=== PATIENT | male | born 1960 | race Caucasian/White ===

== ENCOUNTER 2017-06-04 17:58 | Emergency (ER) | payer BC ==
[2017-06-04 18:06] VITALS: BP 128/73
[2017-06-04] MEDS ORDERED: Lidocaine 1% MPF* 2 ML VIAL INJ ONE ×2 (18:35→19:15)
[2017-06-04] MEDS ORDERED: Lidocaine 1% MPF* 2 ML VIAL ONE (18:39)
--- NOTE | 2017-06-04 19:27 | UC ---
Laceration HPI - HPI Summary HPI Summary: c/o laceration to right lateral elbow. Pt is UTD with tetanus. - History Of Current Complaint Chief Complaint: UCLaceration Stated Complaint: RIGHT ARM LACERATION Time Seen by Provider: 06/04/17 18:27 Hx Obtained From: Patient Laceration Location: Arm - right elbow alteral side Mechanism Of Injury: Blunt Trauma Onset/Duration: Sudden Onset Severity: Moderate Aggravating Factors: Movement Related History: Dominant Hand Right - Allergies/Home Medications Allergies/Adverse Reactions: Allergies Allergy/AdvReac Type Severity Reaction Status Date / Time No Known Allergies Allergy Verified 06/04/17 18:02 Home Medications: Home Medications Ibuprofen TAB* [Advil TAB*] 400 mg PO Q6H PRN 06/04/17 [History Confirmed ] PMH/Surg Hx/FS Hx/Imm Hx Previously Healthy: Yes - Surgical History Surgical History: Yes Surgery Procedure, Year, and Place: appy, lower back surgery - Family History Known Family History: Positive: Cardiac Disease - Social History Occupation: Employed Full-time Lives: With Family Alcohol Use: None Substance Use Type: None Smoking Status (MU): Former Smoker Type: Cigarettes Amount Used/How Often: 2-3 PPD Length of Time of Smoking/Using Tobacco: ~30 Years Have You Smoked in the Last Year: No When Did the Patient Quit Smoking/Using Tobacco: ~2006 - Immunization History Most Recent Tetanus Shot: ~2014 Review of Systems Constitutional: Negative Skin: Other - laceration to right forearm Eyes: Negative ENT: Negative Respiratory: Negative Cardiovascular: Negative Gastrointestinal: Negative Genitourinary: Negative Motor: Negative Neurovascular: Negative Musculoskeletal: Negative Neurological: Negative Psychological: Negative All Other Systems Reviewed And Are Negative: Yes Physical Exam Triage Information Reviewed: Yes Appearance: Well-Appearing Vital Signs: Initial Vital Signs Temp 97.8 F 06/04/17 18:01 Pulse 70 06/04/17 18:01 Resp 16 06/04/17 18:01 BP 128/73 06/04/17 18:01 Eye Exam: Normal Neck exam: Normal Respiratory Exam: Normal Musculoskeletal Exam: Normal Musculoskeletal: Positive: Strength Intact, ROM Intact Neurological Exam: Normal Psychological Exam: Normal Skin Exam: Other - laceration right proximal lateral elbow Laceration Repair - Laceration Repair 1 Description: Linear Laceration Size After Repair: Length (cm) - 4, Width (mm) - 10, Depth (mm) - 5 Modified For Repair: No Type Injection: Local Anesthesia Used: 1.0% Lido Irrigation With Pressure Irrigation Device: Yes Closure Method: Single Layer - eight 4-0 sutures placed Suture Of: Skin Suture Type: Nylon Laceration Course/Dx - Differential Dx - Laceration/Wound Differental Diagnoses: Laceration Provider Diagnoses: laceration to right forearm repaired with eights sutures placed of 4-0 Discharge - Discharge Plan Condition: Stable Disposition: HOME Prescriptions: Cephalexin CAP* [Keflex 500 CAP*] 500 mg PO Q12H #14 cap Patient Education Materials: Care For Your Stitches (ED), Laceration (ED) Referrals: No Primary Care Phys,NOPCP [Primary Care Provider] - Additional Instructions: Please return in 10-12 days to have the sutures removed. Please monitor for signs and symptoms of infection including but not limited to increased redness, tenderness, purulent discharge, fever and/or chills. If this occurs please seek medical care immediately.
== END 2017-06-04 19:25 | disposition home or self-care (01) ==
LOC: UCCORT 17:58
DX: S51.811A Laceration without foreign body of right forearm, initial encounter (principal); X58.XXXA Exposure to other specified factors, initial encounter; Y93.9 Activity, unspecified; Y92.9 Unspecified place or not applicable; Z87.891 Personal history of nicotine dependence
CPT/HCPCS: 12002; 99212; G0463

== ENCOUNTER 2017-06-15 10:55 | Emergency (ER) | payer BC ==
[2017-06-15 11:10] VITALS: BP 102/65
--- NOTE | 2017-06-15 11:46 | UC ---
HPI Wound/Suture Re-check - HPI Summary HPI Summary: SUTURES PLACED 06/04/17 TO LACERATION ON RIGHT FOREARM AFTER CUTTING ARM WITH BOLT. EIGHT SUTURES PLACED ON 06/04; TWO SUTURES FELL OUT SINCE THAT TIME. JUST FINISHED TEN DAY COURSE OF ANTIBIOTICS, HAS BEEN DRESSING WOUND WITH TRIPLE ANTIBIOTICS. TETANUS UTD. - History Of Current Complaint Chief Complaint: UCSkin Stated Complaint: SUTURE REMOVAL Time Seen by Provider: 06/15/17 11:11 Hx Obtained From: Patient Onset/Duration: Sudden Onset, Lasting Weeks, Still Present Severity: Mild Pain Intensity: 0 Pain Scale Used: 0-10 Numeric - Allergies/Home Medications Allergies/Adverse Reactions: Allergies Allergy/AdvReac Type Severity Reaction Status Date / Time No Known Allergies Allergy Verified 06/15/17 11:05 PMH/Surg Hx/FS Hx/Imm Hx Previously Healthy: Yes - Surgical History Surgical History: Yes Surgery Procedure, Year, and Place: appy, lower back surgery - Family History Known Family History: Positive: Cardiac Disease - Social History Occupation: Employed Full-time Lives: With Family Alcohol Use: None Substance Use Type: None Smoking Status (MU): Former Smoker Type: Cigarettes Amount Used/How Often: 2-3 PPD Length of Time of Smoking/Using Tobacco: ~30 Years Have You Smoked in the Last Year: No When Did the Patient Quit Smoking/Using Tobacco: ~2006 - Immunization History Most Recent Tetanus Shot: ~2014 Review of Systems Constitutional: Negative Skin: Other - HEALING LACERATION RIGHT FOREARM Eyes: Negative ENT: Negative Respiratory: Negative Cardiovascular: Negative Gastrointestinal: Negative Genitourinary: Negative Motor: Negative Neurovascular: Negative Musculoskeletal: Negative Neurological: Negative Psychological: Negative All Other Systems Reviewed And Are Negative: Yes Physical Exam Triage Information Reviewed: Yes Appearance: Well-Appearing, No Pain Distress, Well-Nourished Vital Signs: Initial Vital Signs Temp 98.3 F 06/15/17 11:06 Pulse 64 06/15/17 11:06 Resp 18 06/15/17 11:06 BP 102/65 06/15/17 11:06 Pulse Ox 98 06/15/17 11:06 Vital Signs Reviewed: Yes Eye Exam: Normal ENT Exam: Normal ENT: Positive: Normal ENT inspection, Hearing grossly normal, TMs normal Dental Exam: Normal Neck exam: Normal Neck: Positive: Supple, Nontender, No Lymphadenopathy Respiratory Exam: Normal Respiratory: Positive: Chest non-tender, Lungs clear, Normal breath sounds, No respiratory distress, No accessory muscle use Cardiovascular Exam: Normal Cardiovascular: Positive: RRR, No Murmur, Pulses Normal Abdominal Exam: Normal Musculoskeletal Exam: Normal Musculoskeletal: Positive: Strength Intact, ROM Intact Neurological Exam: Normal Psychological Exam: Normal Skin: Positive: Other - HEALING LACERATION RIGHT FOREARM Procedures - Procedure Summary Procedure Summary: SIX PROLENE SUTURES REMOVED FROM HEALING LACERATION ON RIGHT FOREARM USING FORCEPS AND STERILE SCISSORS Course/Dx - Differential Dx - Laceration/Wound Differential Diagnoses: Abscess, Cellulitis, Healing Wound, Suture Removal Provider Diagnoses: SUTURE REMOVAL RIGHT FOREARM Discharge - Discharge Plan Condition: Stable Disposition: HOME Patient Education Materials: Stitches Removal (ED) Referrals: [facility] [Outside] No Primary Care Phys,NOPCP [Primary Care Provider] - Additional Instructions: PRIMARY CARE: There are four major types of clinical preventive care: immunizations, screening , behavioral counseling (sometimes referred to as lifestyle changes), and chemoprevention. All four apply throughout the life span. It is important to establish and to have access to a Primary Care Physician, not only for follow- up regrding acute and chronic problems, but also for preventative care.
== END 2017-06-15 11:32 | disposition home or self-care (01) ==
LOC: UCCORT 10:55
DX: Z48.02 Encounter for removal of sutures (principal)